=== PATIENT | female | born 1960 | race African-American/Black ===

== ENCOUNTER → 2016-07-07 | Outpatient (CLI) | payer BC ==
--- NOTE | ~2016-07-07 | MY11 ---
[facility] A Service of [facility] RADIOLOGY TEXT RESULTS PATIENT: TED OBREGON LOCATION: [facility] : 60 UNIT #: [id number] AGE: [address]: Axel Sandy MD SEX: F ORDER DR: [id number] [facility]. [place], [place] [address] [id number] O MR#: [id number] Acc #: [id number] NAME: TED OBREGON : 1960 SEX: F STUDY DATE/TIME: 07/07/2016 15:03 UNIT: [facility] ROOM: STUDY DESCRIPTION: MY Mammogram Screening Dig Adrci Attending Physician: Axel Sandy Sr., M.D. Referring Physician: Axel Sandy Sr., M.D. Ordering Physician: Axel Sandy Sr., M.D. Primary Care Physician: Axel Sandy Sr., M.D. MEDICAL IMAGING REPORT This report is preliminary unless electronic signature is present EXAM Digital screening mammogram, 07/07/2016 HISTORY 55-year-old woman, no risk elevation. Previous right breast biopsy. Annual screening. COMPARISON 07/14/03, 05/04/2012, 11/28/2013 FINDINGS Digital imaging of each breast was completed utilizing screening protocol. Review includes FDA-approved CAD device. There is some scar formation at the biopsy site outer hemisphere right breast. Single small partially calcified lipoid cyst also projects in the anterior third subareolar location right breast. There is no interval occurring mass. There are no suspicious microcalcifications and no suspicious architectural deformity. IMPRESSION Negative mammogram. Annual screening recommended. Patients over the age of 40 are entered into a reminder system with target due date for the next mammogram. A result letter will also be sent to the patient. BIRADS: 1 Negative Dictated by... Kevin Rhoades M.D. THIS IS AN ELECTRONICALLY VERIFIED REPORT Kevin Rhoades M.D. at 07/08/2016 11:33 AM NIKKY/conrado [facility] A Service of [facility] RADIOLOGY TEXT RESULTS PATIENT: TED OBREGON LOCATION: [facility] : 60 UNIT #: [id number] AGE: [address]: Axel Sandy MD SEX: F ORDER DR: TD: 07/08/2016 09:40 JOB #: [id number] MEDICAL IMAGING REPORT Page 1 of 1 COPY
== END | disposition home or self-care (01) ==
LOC: CWCC 14:13
DX: Z12.31 Encounter for screening mammogram for malignant neoplasm of breast (principal); Z98.890 Other specified postprocedural states
CPT/HCPCS: G0202